=== PATIENT | male | born 1950 | race Caucasian/White ===

== ENCOUNTER 2022-03-26 10:00 | Emergency (ER) | payer BC ==
[2022-03-26] MEDS ORDERED: Sodium Chloride 0.9% 10 ML Syringe FLUSH PRN (10:06)
[2022-03-26] MEDS ORDERED: Sodium Chloride 0.9% 2.5 ML Syringe FLUSH PRN (10:06)
[2022-03-26 10:52] LABS: CARBON DIOXIDE,CO2 29.7 mmol/L (21.0-32.0); POTASSIUM,K 4.4 mmol/L (3.5-5.1)
[2022-03-26] MEDS: Aspirin 81 MG Tab.Chew PO ONE ×2 (11:30→11:32)
[2022-03-26 11:55] LABS: CORONAVIRUS COVID-19 NAA NEGATIVE (NEGATIVE); INFLUENZA A NAA NEGATIVE (NEGATIVE); INFLUENZA B NAA NEGATIVE (NEGATIVE)
== END 2022-03-26 12:21 ==
LOC: MW.ED 10:00
DX: I20.0 Unstable angina (principal); K21.9 Gastro-esophageal reflux disease without esophagitis; I10 Essential (primary) hypertension; Z86.16 Personal history of COVID-19; Z20.822 Contact with and (suspected) exposure to COVID-19; Z79.899 Other long term (current) drug therapy
CPT/HCPCS: 0240U; 36415; 71045; 80053; 84484; 85025; 93005; 99285; A9270; J3490; 93010

== ENCOUNTER 2022-07-02 08:15 | Emergency (ER) | payer MEDICARE ==
[2022-07-02] MEDS ORDERED: Sodium Chloride 0.9% 1,000 ML IV ONE (09:48)
[2022-07-02 11:13] LABS: CARBON DIOXIDE,CO2 31.4 mmol/L (21.0-32.0); POTASSIUM,K 3.8 mmol/L (3.5-5.1)
[2022-07-02] MEDS ORDERED: Iopamidol 755 MG/ML 500 ML Multipack Bottle IVPUSH STA (11:48)
== END 2022-07-02 13:17 | disposition home or self-care (01) ==
LOC: MW.ED 08:15
DX: U07.1 COVID-19 (principal); H66.002 Acute suppurative otitis media without spontaneous rupture of ear drum, left ear; I25.10 Atherosclerotic heart disease of native coronary artery without angina pectoris; I10 Essential (primary) hypertension; K21.9 Gastro-esophageal reflux disease without esophagitis; Z87.891 Personal history of nicotine dependence; Z79.899 Other long term (current) drug therapy
CPT/HCPCS: 36415; 70450; 70496; 70498; 71045; 80053; 84484; 85025; 85379; 93005; 99284; J7030; Q9967; U0002; 93010

== ENCOUNTER 2022-10-15 08:57 | Emergency (ER) | payer OTHER, MEDICARE ==
[2022-10-15 10:23] LABS: CARBON DIOXIDE,CO2 25.7 mmol/L (21.0-32.0); POTASSIUM,K 4.4 mmol/L (3.5-5.1)
== END 2022-10-15 10:42 | disposition home or self-care (01) ==
LOC: MW.ED 08:57
DX: L21.9 Seborrheic dermatitis, unspecified (principal); I10 Essential (primary) hypertension; I25.10 Atherosclerotic heart disease of native coronary artery without angina pectoris; K21.9 Gastro-esophageal reflux disease without esophagitis; Z79.82 Long term (current) use of aspirin; Z79.899 Other long term (current) drug therapy
CPT/HCPCS: 36415; 80053; 82947; 84443; 85025; 99283

== ENCOUNTER 2023-03-24 10:43 | Day surgery (SDC) | payer OTHER ==
[~2023-03-24 10:43] MED LIST: Lactated Ringers 1,000 ML IV SCH
[2023-03-24] MEDS ORDERED: Lidocaine 2% 5 ML SDV ONE (13:00)
[2023-03-24] MEDS ORDERED: Propofol 200 MG/20 ML SDV ONE (13:00)
== END 2023-03-24 14:00 | disposition home or self-care (01) ==
LOC: MW.SDS 10:43
PROVIDERS: ATTEND Surgery
DX: Z12.11 Encounter for screening for malignant neoplasm of colon (principal); D12.3 Benign neoplasm of transverse colon; J44.9 Chronic obstructive pulmonary disease, unspecified; K21.9 Gastro-esophageal reflux disease without esophagitis; I25.10 Atherosclerotic heart disease of native coronary artery without angina pectoris; G47.30 Sleep apnea, unspecified; E78.00 Pure hypercholesterolemia, unspecified; I25.2 Old myocardial infarction; M54.9 Dorsalgia, unspecified; G89.29 Other chronic pain; Z95.5 Presence of coronary angioplasty implant and graft; Z79.82 Long term (current) use of aspirin; Z79.899 Other long term (current) drug therapy; Z87.891 Personal history of nicotine dependence
CPT/HCPCS: 45380; J2704; J7120; 00811; 99100; J3490

== ENCOUNTER 2024-04-18 09:50 | Emergency (ER) | payer OTHER | END 2024-04-18 13:58 | disposition home or self-care (01) | LOC: MW.ED 09:50 | DX: G56.03 Carpal tunnel syndrome, bilateral upper limbs (principal); I10 Essential (primary) hypertension; E78.00 Pure hypercholesterolemia, unspecified; I25.10 Atherosclerotic heart disease of native coronary artery without angina pectoris; J44.9 Chronic obstructive pulmonary disease, unspecified; K21.9 Gastro-esophageal reflux disease without esophagitis; Z95.1 Presence of aortocoronary bypass graft; I25.2 Old myocardial infarction; Z79.899 Other long term (current) drug therapy; Z79.82 Long term (current) use of aspirin; Z75.8 Other problems related to medical facilities and other health care | CPT/HCPCS: 99283 ==

== ENCOUNTER 2024-08-23 11:12 | Emergency (ER) | payer OTHER ==
[2024-08-23] MEDS: Lidocaine 1% 5 ML VIAL INJECT ONE (11:43)
[2024-08-23] MEDS: Diphtheria,Pertussis(Acell),Tetanus Vaccine 0.5 ML Syringe IM ONE (11:44)
== END 2024-08-23 13:06 | disposition home or self-care (01) ==
LOC: MW.ED 11:12
DX: S61.411A Laceration without foreign body of right hand, initial encounter (principal); Z72.3 Lack of physical exercise; Z75.8 Other problems related to medical facilities and other health care; I10 Essential (primary) hypertension; J44.89 Other specified chronic obstructive pulmonary disease; E78.00 Pure hypercholesterolemia, unspecified; K21.9 Gastro-esophageal reflux disease without esophagitis; Z79.899 Other long term (current) drug therapy; W23.0XXA Caught, crushed, jammed, or pinched between moving objects, initial encounter
CPT/HCPCS: 12002; 90471; 90715; 99282; 99282-25; J3490